=== PATIENT | male | born 1960 | race African-American/Black ===

== ENCOUNTER 2024-03-06 00:50 | Inpatient (IN) | payer MEDICAID ==
[~2024-03-06] VITALS: Ht 188 cm; Wt 109.8 kg
[2024-03-06 00:30] VITALS: RESP 28
[2024-03-06 01:13] VITALS: O2SAT 96
[2024-03-06 01:46] LABS: BASOPHILS % 0.8 % (0.0-2.0); HEMATOCRIT. 46.4 % (42.0-52.0); LYMPHOCYTES % 28.7 % (20.0-50.0); MEAN CORPUSCULAR HEMOGLOBIN 31.7 pg (28.0-32.0); MEAN CORPUSCULAR HGB CONC 34.4 g/dL (31.0-37.0); MEAN CORPUSCULAR VOLUME 92.1 fL (80.0-94.0); MEAN PLATELET VOLUME 9.1 fl (7.4-10.4); MONOCYTES % 5.6 % (2.0-8.0); NEUTROPHILS % 61.9 % (40.0-76.0); PLATELET 211 x1000/uL (130-400); RED BLOOD CELL COUNT 5.03 mill/uL (4.7-6.1); RED CELL DISTRIBUTION WIDTH 13.6 % (11.6-14.6); WHITE BLOOD COUNT 6.6 x1000/uL (4.5-11.0)
[2024-03-06 01:54] LABS: CHLORIDE 104 mEq/L (98-107); POTASSIUM 3.2 mEq/L (3.5-5.1); SODIUM 140 mEq/L (136-145)
[2024-03-06 01:55] LABS: CALCIUM 9.2 mg/dL (8.7-10.4); CARBON DIOXIDE 29 mEq/L (21-32)
[2024-03-06 02:00] LABS: CREATININE 1.4 mg/dL (0.6-1.3); GLUCOSE 196 mg/dL (70-105); INR 0.9; PARTIAL THROMBOPLASTIN TIME 24.8 sec (23.4-31.0); PROTHROMBIN TIME 10.6 sec (9.6-11.0); UREA NITROGEN BLOOD 17 mg/dL (9-23)
[2024-03-06 02:01] LABS: TROPONIN I HIGH SENSITIVITY 49 ng/L (3.0-53)
[2024-03-06 02:22] LABS: ETHANOL BLOOD < 10 mg/dL (<10)
[2024-03-06] MEDS: HYDRALAZINE 20MG/ML VIAL IV NR ×2 (03:37→08:27)
[2024-03-06 04:02] LABS: BG SAMPLE SITE RIGHT RADIAL
[2024-03-06 04:03] LABS: BG BASE EXCESS 3.4 mmol/L (-2.0-3.0); BG HCO3 ACT 30.1 mmol/L (21.0-28.0); BG PCO2 53.2 mmHg (35.0-48.0); BG PO2 510.2 mmHg (83.0-108.0)
[2024-03-06 04:04] LABS: BG BILEVEL POS AIRWAY PRESSURE YES; BG FRACTION INSPIRED OXYGEN 100
[2024-03-06] MEDS: MORPHINE SULFATE 4 MG/ML INJ (FOR IV/IM USE) IV NR (04:17)
[2024-03-06] MEDS: IOHEXOL-350 100 ML BOTTLE ONE (06:35)
[2024-03-06 09:12] VITALS: RESP 20
[2024-03-06] MEDS: KCL 20MEQ/100ML PREMIX 100 ML IV SCH (14:06)
[2024-03-06] MEDS ORDERED: IPRATROPIUM/ALBUTEROL 0.5-3(2.5)MG/3ML NEB HHN PRN (14:45)
[2024-03-06] MEDS ORDERED: DEXTROSE 50% WATER 50ML SYRINGE IV PRN (15:45)
[2024-03-06] MEDS ORDERED: ONDANSETRON HCL 4MG/2ML INJ IV PRN (15:45)
[2024-03-06] MEDS ORDERED: DOCUSATE SODIUM 100MG CAPSULE PO PRN (15:45)
[2024-03-06] MEDS ORDERED: AZITHROMYCIN 500MG/250ML 250 ML IV SCH (15:45)
[2024-03-06] MEDS ORDERED: CEFTRIAXONE 1GM/50ML 50 ML IV SCH (15:45)
[2024-03-06] MEDS ORDERED: ACETAMINOPHEN 325MG TABLET PO PRN (15:45)
[2024-03-06 17:30] VITALS: BP 158/70; PULSE 77; RESP 18; TEMP 36.3068
[2024-03-06] MEDS ORDERED: IPRATROPIUM/ALBUTEROL 0.5-3(2.5)MG/3ML NEB HHN SCH (18:00)
[2024-03-06 20:00] VITALS: BP 175/79; PULSE 83; RESP 18; TEMP 36.61404; O2SAT 98
[2024-03-06] MEDS: BLOOD SUGAR DIAGNOSTIC STRIP TEST SCH (21:00)
[2024-03-06] MEDS: CLONIDINE 0.1MG TABLET PO PRN (22:03)
[2024-03-06] MEDS: INSULIN LISPRO 100 UNITS/ML SUBCUT SCH (22:05)
[2024-03-07] VITALS: BP 143/80; PULSE 104; RESP 19; TEMP 36.61404; O2SAT 100
[2024-03-07 04:00] VITALS: BP 163/84; PULSE 74; RESP 19; TEMP 36.3918; O2SAT 100
[2024-03-07 08:00] VITALS: BP 187/89; PULSE 73; RESP 18; TEMP 36; O2SAT 96
[2024-03-07] MEDS: AMLODIPINE 5MG TABLET PO SCH (10:21)
[2024-03-07 11:59] LABS: CHLORIDE 106 mEq/L (98-107); POTASSIUM 3.7 mEq/L (3.5-5.1); SODIUM 141 mEq/L (136-145)
[2024-03-07 12:00] VITALS: BP 182/100; PULSE 75; RESP 18; TEMP 36.1; O2SAT 98
[2024-03-07 12:00] LABS: CARBON DIOXIDE 27 mEq/L (21-32)
[2024-03-07 12:01] LABS: CALCIUM 9.6 mg/dL (8.7-10.4)
[2024-03-07 12:02] LABS: BASOPHILS % 0.2 % (0.0-2.0); EOSINOPHILS % 2.2 % (0.0-5.0); HEMOGLOBIN. 15.7 g/dL (14.0-18.0); LYMPHOCYTES % 19.5 % (20.0-50.0); MEAN CORPUSCULAR HEMOGLOBIN 31.1 pg (28.0-32.0); MEAN CORPUSCULAR HGB CONC 33.5 g/dL (31.0-37.0); MEAN CORPUSCULAR VOLUME 92.9 fL (80.0-94.0); MEAN PLATELET VOLUME 9.5 fl (7.4-10.4); MONOCYTES % 7.1 % (2.0-8.0); PLATELET 204 x1000/uL (130-400); RED BLOOD CELL COUNT 5.06 mill/uL (4.7-6.1); RED CELL DISTRIBUTION WIDTH 13.7 % (11.6-14.6); WHITE BLOOD COUNT 5.7 x1000/uL (4.5-11.0)
[2024-03-07 12:05] LABS: CREATININE 1.2 mg/dL (0.6-1.3); GLUCOSE 138 mg/dL (70-105)
[2024-03-07 12:06] LABS: UREA NITROGEN BLOOD 13 mg/dL (9-23)
[2024-03-07 12:07] LABS: ALANINE AMINOTRANSFERASE 22 IU/L (10-49); ASPARTATE AMINOTRANSFERASE 19 IU/L (<34); PHOSPHORUS 2.7 mg/dL (2.5-4.9)
[2024-03-07 12:08] LABS: BILIRUBIN TOTAL 0.8 mg/dL (0.1-1.0); PROTEIN TOTAL 6.5 g/dL (6.0-8.3)
[2024-03-07] MEDS: HYDRALAZINE 20MG/ML VIAL IV PRN (14:00)
[2024-03-07 16:00] VITALS: BP 171/82; PULSE 84; RESP 18; TEMP 36.1; O2SAT 98
[2024-03-07] MEDS: CEFTRIAXONE 1GM/50ML 50 ML IV SCH (17:29)
[2024-03-07] MEDS: LOSARTAN 50 MG TABLET PO SCH (17:30)
[2024-03-07] MEDS: HYDRALAZINE HCL 100MG TABLET PO SCH (17:30)
[2024-03-07] MEDS: AMLODIPINE 10MG TABLET PO SCH (18:00)
[2024-03-07 20:00] VITALS: BP 164/86; PULSE 82; RESP 19; TEMP 36.6; O2SAT 97
[2024-03-07] MEDS: AZITHROMYCIN 500MG/250ML 250 ML IV SCH (21:27)
[2024-03-07] MEDS: ACETAMINOPHEN 325MG TABLET PO PRN (23:43)
[2024-03-08] VITALS: BP 155/77; PULSE 79; RESP 19; TEMP 36.9; O2SAT 98
[2024-03-08 06:50] LABS: CARBON DIOXIDE 27 mEq/L (21-32); CHLORIDE 103 mEq/L (98-107); POTASSIUM 3.3 mEq/L (3.5-5.1); SODIUM 138 mEq/L (136-145)
[2024-03-08 06:52] LABS: CALCIUM 9.3 mg/dL (8.7-10.4)
[2024-03-08 06:56] LABS: CREATININE 1.1 mg/dL (0.6-1.3); GLUCOSE 127 mg/dL (70-105); UREA NITROGEN BLOOD 11 mg/dL (9-23)
[2024-03-08 07:36] LABS: HEMATOCRIT 47.8 % (42.0-52.0); HEMOGLOBIN 16.3 g/dL (14.0-18.0); MEAN CORPUSCULAR HEMOGLOBIN 31.6 pg (28.0-32.0); MEAN CORPUSCULAR HGB CONC 34.1 g/dL (31.0-37.0); MEAN CORPUSCULAR VOLUME 92.7 fL (80.0-94.0); PLATELET 204 x1000/uL (130-400); RED BLOOD CELL COUNT 5.16 mill/uL (4.7-6.1); RED CELL DISTRIBUTION WIDTH 13.7 % (11.6-14.6); WHITE BLOOD COUNT 4.8 x1000/uL (4.5-11.0)
[2024-03-08 08:00] VITALS: BP 163/94; PULSE 85; RESP 20; TEMP 36.7; O2SAT 100
[2024-03-08] MEDS: LOSARTAN 50 MG TABLET PO SCH (09:39)
[2024-03-08] MEDS: POTASSIUM CHLORIDE 20MEQ TABLET SR PO NR (09:39)
[2024-03-08] MEDS: CARVEDILOL 6.25 MG TABLET PO SCH (11:48)
[2024-03-08 12:00] VITALS: BP 166/94; PULSE 86; RESP 18; TEMP 36.3; O2SAT 98
[2024-03-08 14:34] LABS: *AMPHETAMINES SCREEN URINE NEGATIVE (NEGATIVE); *BARBITURATES SCREEN URINE NEGATIVE (NEGATIVE); *BENZODIAZEPINES SCREEN URINE NEGATIVE (NEGATIVE); *COCAINE SCREEN URINE NEGATIVE (NEGATIVE); METHADONE URINE SCREEN NEGATIVE (NEGATIVE); OPIATES URINE SCREEN NEGATIVE (NEGATIVE); PHENCYCLIDINE URINE SCREEN NEGATIVE (NEGATIVE)
[2024-03-08 14:35] LABS: CANNABINOID URINE SCREEN PRESUMPTIVE POSITIVE (NEGATIVE); ECSTASY MDMA SCREEN URINE NEGATIVE (NEGATIVE)
[2024-03-08] MEDS ORDERED: AZITHROMYCIN 500 MG TABLET PO SCH (21:00)
== END 2024-03-08 16:45 | disposition left against medical advice (07) | DRG 133 ==
LOC: ER 00:59 → 7EST 06:42 → EDBEDREQSVC 15:55
PROVIDERS: ADMIT Internal Medicine; ATTEND Internal Medicine
PROC: 5A09357 Assistance with Respiratory Ventilation, Less than 24 Consecutive Hours, Continuous Positive Airway Pressure (ICD-10-PCS; principal; 2024-03-06)
DX: J96.01 Acute respiratory failure with hypoxia (principal); I50.33 Acute on chronic diastolic (congestive) heart failure; N17.9 Acute kidney failure, unspecified; J18.9 Pneumonia, unspecified organism; I13.0 Hypertensive heart and chronic kidney disease with heart failure and stage 1 through stage 4 chronic kidney disease, or unspecified chronic kidney disease; E11.22 Type 2 diabetes mellitus with diabetic chronic kidney disease; E11.65 Type 2 diabetes mellitus with hyperglycemia; N18.9 Chronic kidney disease, unspecified; E66.9 Obesity, unspecified; F12.90 Cannabis use, unspecified, uncomplicated; E87.6 Hypokalemia; J45.909 Unspecified asthma, uncomplicated; I16.1 Hypertensive emergency; Z68.31 Body mass index [BMI] 31.0-31.9, adult; Z53.29 Procedure and treatment not carried out because of patient's decision for other reasons; Z79.84 Long term (current) use of oral hypoglycemic drugs; Z87.11 Personal history of peptic ulcer disease; Z87.891 Personal history of nicotine dependence; Z91.148 Patient's other noncompliance with medication regimen for other reason
CPT/HCPCS: 36415; 36600; 71045; 71275; 80048; 80053; 80305; 80320; 82962; 83036; 83735; 83880; 84100; 84145; 84484; 85025; 85027; 85379; 87804; 93005; 93306; 94660; 99285; J0360; J0456; J0696; J1815; J2270; J3480; Q9967; G0480